=== PATIENT | male | born 1960 | race Caucasian/White ===

== ENCOUNTER 2018-08-03 05:12 | Inpatient (IN) | payer OTHER ==
[~2018-08-03] VITALS: Ht 182.9 cm; Wt 80.0 kg
[2018-08-03 07:09] LABS: ALKALINE PHOSPHATASE 53 U/L (46-116); ALT/SGPT 12 U/L (16-63); AST/SGOT 8 U/L (15-37); BILIRUBIN TOTAL 0.2 mg/dL (0.20-1.00); CALCIUM 8.1 mg/dL (8.5-10.1); CARBON DIOXIDE 22.7 mmol/L (21-32); CHLORIDE SERUM 96 mmol/L (98-107); CREATININE SERUM 2.3 mg/dL (0.7-1.3); GFR1 31 mL/min; GLUCOSE SERUM 143 mg/dL (74-106); POTASSIUM SERUM 4.1 mmol/L (3.5-5.1); SODIUM SERUM 131 mmol/L (136-145); TOTAL PROTEIN, SERUM 7.2 g/dL (6.4-8.2)
[2018-08-03 07:14] LABS: PLATELET COUNT 442 x10^3mcL (130-400)
[2018-08-03] MEDS ORDERED: KEN025C TOP (07:20)
[2018-08-03] MEDS ORDERED: HCT TOP (07:21)
[2018-08-03] MEDS ORDERED: SENNA8.8 MG/51 PO (07:22)
[2018-08-03] MEDS ORDERED: APAP500 MG PR (07:23)
[2018-08-03] MEDS ORDERED: HALOPERIDOL2 MG PO (07:25)
[2018-08-03] MEDS ORDERED: LEVSIN-SL0.125 MG SL (07:26)
[2018-08-03] MEDS ORDERED: LORAZEPAM0.5 MG PO (07:27)
[2018-08-03] MEDS ORDERED: MORPHINE SULFAT15 MG PO (07:28)
[2018-08-03 07:29] LABS: ALBUMIN 2.2 g/dL (3.4-5.0); CHOLESTEROL 93 mg/dL (<200); HDL CHOLESTEROL 33 mg/dL (40-60)
[2018-08-03] MEDS ORDERED: COMPAZINE10 M1 PO (07:29)
[2018-08-03] MEDS ORDERED: LAXATIVE5 M1 PR (07:30)
[2018-08-03] MEDS ORDERED: LACTULOSE10 GM/152 PO (07:31)
[2018-08-03] MEDS ORDERED: NOR5 PO (07:32)
[2018-08-03] MEDS ORDERED: LOPERAMIDE HCL2 MG PO (07:33)
[2018-08-03] MEDS ORDERED: GLYCOPYRROLATE1 M1 PO (07:34)
[2018-08-03 08:09] LABS: UA SPECIFIC GRAVITY 1.015 (1.005-1.035); microscopic required? YES; urine erythrocyte 3+ (NEGATIVE)
[2018-08-03 08:39] LABS: BAND NEUTROPHIL 8 % (0-10); SEGMENTED NEUTROPHILS 53 % (37-75)
[2018-08-03 08:40] LABS: MONOCYTE 9 % (0-7)
[2018-08-03 08:41] LABS: PLATELET MORPHOLOGY PLATELETS NORMAL; rbc morphology (normal/abnorm) ABNORMAL (NORMAL)
[2018-08-03 11:26] VITALS: BP 132/64
[2018-08-03 17:50] VITALS: BP 109/56
[2018-08-03 21:13] VITALS: BP 127/71
[2018-08-04 06:22] VITALS: BP 150/73
[2018-08-04 06:36] LABS: PLATELET COUNT 357 x10^3mcL (130-400)
[2018-08-04 07:31] LABS: RED CELL DISTRIBUTION WIDTH 18.2 % (11.5-14.5)
[2018-08-04 07:32] LABS: CALCIUM 7.3 mg/dL (8.5-10.1); CARBON DIOXIDE 20.6 mmol/L (21-32); MAGNESIUM 1.6 mg/dL (1.8-2.4); PHOSPHOROUS 3.8 mg/dL (2.5-4.9); POTASSIUM SERUM 3.6 mmol/L (3.5-5.1)
[2018-08-04 07:34] LABS: ALBUMIN 1.6 g/dL (3.4-5.0)
[2018-08-04 13:58] LABS: SEGMENTED NEUTROPHILS 44 % (37-75)
[2018-08-04 13:59] LABS: BAND NEUTROPHIL 7 % (0-10); BASOPHIL 1 % (0-2); MONOCYTE 10 % (0-7); rbc morphology (normal/abnorm) ABNORMAL (NORMAL)
[2018-08-04 14:05] LABS: PLATELET MORPHOLOGY PLATELETS INCREASED
[2018-08-04 18:50] VITALS: BP 86/57
[2018-08-04 21:17] VITALS: BP 125/75
[2018-08-05 05:30] VITALS: BP 155/55
[2018-08-05 09:27] VITALS: BP 129/73
[2018-08-05 17:00] VITALS: BP 117/70
[2018-08-05 21:22] VITALS: BP 126/65
[2018-08-06 06:11] VITALS: BP 141/76
[2018-08-06 06:44] LABS: CALCIUM 7.6 mg/dL (8.5-10.1); CARBON DIOXIDE 20.2 mmol/L (21-32); MAGNESIUM 1.6 mg/dL (1.8-2.4); POTASSIUM SERUM 3.2 mmol/L (3.5-5.1)
[2018-08-06 08:07] LABS: RED CELL DISTRIBUTION WIDTH 18.5 % (11.5-14.5)
[2018-08-06 09:55] VITALS: BP 160/72
[2018-08-06 12:02] LABS: PLATELET COUNT 427 x10^3mcL (130-400)
[2018-08-06 12:05] LABS: ATYPICAL LYMPH 1 %; BAND NEUTROPHIL 2 % (0-10); BASOPHIL 0 % (0-2); MONOCYTE 9 % (0-7); SEGMENTED NEUTROPHILS 64 % (37-75)
[2018-08-06 12:07] LABS: PLATELET MORPHOLOGY PLATELETS INCREASED; ovalocyte/elliptocyte 1+; rbc morphology (normal/abnorm) ABNORMAL (NORMAL); schistocyte (helmet cell) 1+
[2018-08-06 16:41] VITALS: BP 136/73
[2018-08-06 21:05] VITALS: BP 148/75
[2018-08-07 05:19] VITALS: BP 122/70
[2018-08-07 07:47] VITALS: Ht 182.9 cm; Wt 80.0 kg
[2018-08-07 09:25] VITALS: BP 134/82
[2018-08-07 12:27] LABS: CALCIUM 8.1 mg/dL (8.5-10.1); CARBON DIOXIDE 20.7 mmol/L (21-32); POTASSIUM SERUM 3.8 mmol/L (3.5-5.1)
[2018-08-07 12:33] LABS: BASOPHIL % 0.3 % (0-2); PLATELET COUNT 400 x10^3mcL (130-400); RED CELL DISTRIBUTION WIDTH 19.5 % (11.5-14.5)
[2018-08-07 16:33] VITALS: BP 166/80
[2018-08-07 19:20] VITALS: BP 133/77
[2018-08-07 20:42] VITALS: BP 139/89
[2018-08-08 05:48] VITALS: BP 98/74
[2018-08-08 06:38] LABS: CARBON DIOXIDE 18.7 mmol/L (21-32); CREATININE SERUM 1.6 mg/dL (0.7-1.3); POTASSIUM SERUM 3.5 mmol/L (3.5-5.1)
[2018-08-08 06:52] LABS: IRON 27 ug/dL (65-170); TOTAL IRON BINDING CAPACITY 123 ug/dL (250-450)
[2018-08-08 07:49] LABS: BASOPHIL % 0.2 % (0-2); PLATELET COUNT 354 x10^3mcL (130-400)
[2018-08-08 07:53] LABS: RED CELL DISTRIBUTION WIDTH 18.9 % (11.5-14.5)
[2018-08-08 08:42] VITALS: BP 174/86
[2018-08-08 10:20] VITALS: BP 124/84
[2018-08-08 16:13] VITALS: BP 118/68
[2018-08-08 20:35] VITALS: BP 97/71
[2018-08-09 06:05] VITALS: BP 164/85
[2018-08-09 09:17] VITALS: BP 180/86
[2018-08-09 12:16] LABS: BASOPHIL % 0.4 % (0-2); PLATELET COUNT 351 x10^3mcL (130-400)
[2018-08-09 12:18] LABS: rbc morphology (normal/abnorm) ABNORMAL (NORMAL)
[2018-08-09 12:42] LABS: POTASSIUM SERUM 4.2 mmol/L (3.5-5.1)
[2018-08-09 12:43] LABS: CALCIUM 7.5 mg/dL (8.5-10.1); CREATININE SERUM 1.6 mg/dL (0.7-1.3)
[2018-08-09 19:10] VITALS: BP 178/96
[2018-08-09 21:16] VITALS: BP 102/67
[2018-08-10 05:53] VITALS: BP 126/71
[2018-08-10 06:57] LABS: BASOPHIL % 0.4 % (0-2); PLATELET COUNT 341 x10^3mcL (130-400)
[2018-08-10 07:07] LABS: RED CELL DISTRIBUTION WIDTH 18.5 % (11.5-14.5)
[2018-08-10 07:16] LABS: CALCIUM 8.2 mg/dL (8.5-10.1); CARBON DIOXIDE 20.6 mmol/L (21-32); CREATININE SERUM 1.5 mg/dL (0.7-1.3); POTASSIUM SERUM 3.4 mmol/L (3.5-5.1)
[2018-08-10 09:14] VITALS: BP 177/85
[2018-08-10 18:17] VITALS: BP 157/68
[2018-08-10 21:47] VITALS: BP 162/81
[2018-08-10 22:45] VITALS: BP 118/75
[2018-08-11 05:06] VITALS: BP 130/78; BP 131/81
[2018-08-11 07:15] LABS: CARBON DIOXIDE 23.7 mmol/L (21-32); CREATININE SERUM 1.4 mg/dL (0.7-1.3); POTASSIUM SERUM 4.2 mmol/L (3.5-5.1)
[2018-08-11 08:35] LABS: BASOPHIL % 0.3 % (0-2); PLATELET COUNT 408 x10^3mcL (130-400); RED CELL DISTRIBUTION WIDTH 19.6 % (11.5-14.5)
[2018-08-11 09:48] VITALS: BP 168/82
[2018-08-11 17:50] VITALS: BP 150/79
[2018-08-11 20:49] VITALS: BP 140/79
[2018-08-12 05:24] VITALS: BP 166/95
[2018-08-12 06:19] LABS: BASOPHIL % 0.6 % (0-2); PLATELET COUNT 395 x10^3mcL (130-400)
[2018-08-12 06:35] LABS: CALCIUM 7.9 mg/dL (8.5-10.1); CARBON DIOXIDE 22.3 mmol/L (21-32); CHLORIDE SERUM 107 mmol/L (98-107); CREATININE SERUM 1.3 mg/dL (0.7-1.3); GFR1 > 60 mL/min; GLUCOSE SERUM 102 mg/dL (74-106); SODIUM SERUM 138 mmol/L (136-145)
[2018-08-12 06:54] LABS: RED CELL DISTRIBUTION WIDTH 19.2 % (11.5-14.5)
[2018-08-12 08:10] VITALS: BP 178/93
[2018-08-12 11:04] VITALS: BP 144/68
[2018-08-12 19:30] VITALS: BP 130/58
[2018-08-12 22:03] VITALS: BP 138/65
[2018-08-13 05:55] VITALS: BP 125/62
[2018-08-13 07:23] LABS: BASOPHIL % 0.8 % (0-2); PLATELET COUNT 359 x10^3mcL (130-400)
[2018-08-13 07:37] LABS: RED CELL DISTRIBUTION WIDTH 19.7 % (11.5-14.5)
[2018-08-13 07:47] LABS: CALCIUM 7.9 mg/dL (8.5-10.1); CARBON DIOXIDE 22.9 mmol/L (21-32); CHLORIDE SERUM 110 mmol/L (98-107); CREATININE SERUM 1.3 mg/dL (0.7-1.3); GFR1 > 60 mL/min; GLUCOSE SERUM 109 mg/dL (74-106); SODIUM SERUM 141 mmol/L (136-145)
[2018-08-13 09:55] VITALS: BP 117/68
[2018-08-13 17:01] VITALS: BP 124/61
[2018-08-13 21:06] VITALS: BP 108/61
[2018-08-14 06:24] VITALS: BP 147/63
[2018-08-14 07:17] LABS: CALCIUM 8.4 mg/dL (8.5-10.1); CARBON DIOXIDE 21.9 mmol/L (21-32); CHLORIDE SERUM 108 mmol/L (98-107); CREATININE SERUM 1.2 mg/dL (0.7-1.3); GFR1 > 60 mL/min; GLUCOSE SERUM 126 mg/dL (74-106); POTASSIUM SERUM 3.8 mmol/L (3.5-5.1); SODIUM SERUM 139 mmol/L (136-145)
[2018-08-14 07:47] LABS: BASOPHIL % 0.7 % (0-2)
[2018-08-14 08:01] LABS: PLATELET COUNT 457 x10^3mcL (130-400); RED CELL DISTRIBUTION WIDTH 20.7 % (11.5-14.5)
[2018-08-14 09:37] VITALS: BP 132/60
[2018-08-14 18:00] VITALS: BP 199/79
[2018-08-15 06:05] VITALS: BP 123/78
[2018-08-15 09:22] VITALS: BP 170/89
[2018-08-15] MEDS ORDERED: VANCO 750750 MG/250 IV (11:41)
[2018-08-15 17:04] VITALS: BP 152/73
[2018-08-15 21:20] VITALS: BP 168/55
[2018-08-15 23:40] VITALS: BP 180/81
[2018-08-16 01:00] VITALS: BP 125/62
[2018-08-16 06:05] VITALS: BP 148/74
[2018-08-16 09:17] VITALS: BP 101/56
[2018-08-16 12:29] VITALS: BP 116/60
[2018-08-16 16:08] VITALS: BP 117/78
[2018-08-16 19:30] VITALS: BP 100/82
[2018-08-17 05:32] VITALS: BP 137/71
[2018-08-17 07:07] LABS: BASOPHIL % 0.8 % (0-2); PLATELET COUNT 371 x10^3mcL (130-400)
[2018-08-17 07:10] LABS: CARBON DIOXIDE 25.9 mmol/L (21-32); CHLORIDE SERUM 105 mmol/L (98-107); CREATININE SERUM 0.9 mg/dL (0.7-1.3); GFR1 > 60 mL/min; GLUCOSE SERUM 95 mg/dL (74-106); MAGNESIUM 1.5 mg/dL (1.8-2.4); POTASSIUM SERUM 4.3 mmol/L (3.5-5.1); SODIUM SERUM 137 mmol/L (136-145)
[2018-08-17 08:20] VITALS: BP 139/78
[2018-08-17 08:57] LABS: RED CELL DISTRIBUTION WIDTH 21.9 % (11.5-14.5)
[2018-08-17 16:18] VITALS: BP 117/75
[2018-08-17 21:58] VITALS: BP 173/59
[2018-08-18 05:52] VITALS: BP 135/98
[2018-08-18 06:09] LABS: CALCIUM 8.2 mg/dL (8.5-10.1); CARBON DIOXIDE 30.5 mmol/L (21-32); CHLORIDE SERUM 103 mmol/L (98-107); CREATININE SERUM 0.9 mg/dL (0.7-1.3); GFR1 > 60 mL/min; GLUCOSE SERUM 86 mg/dL (74-106); MAGNESIUM 1.8 mg/dL (1.8-2.4); POTASSIUM SERUM 4.6 mmol/L (3.5-5.1); SODIUM SERUM 136 mmol/L (136-145)
[2018-08-18 06:52] LABS: BASOPHIL % 0.2 % (0-2); PLATELET COUNT 387 x10^3mcL (130-400)
[2018-08-18 08:19] VITALS: BP 178/70
[2018-08-18 09:11] LABS: RED CELL DISTRIBUTION WIDTH 22.9 % (11.5-14.5)
[2018-08-18 20:47] VITALS: BP 103/66
[2018-08-19 05:25] VITALS: BP 174/71
[2018-08-19 07:23] LABS: PLATELET COUNT 367 x10^3mcL (130-400)
[2018-08-19 07:25] LABS: RED CELL DISTRIBUTION WIDTH 24.7 % (11.5-14.5)
[2018-08-19 07:28] LABS: CALCIUM 8.2 mg/dL (8.5-10.1); CARBON DIOXIDE 28.3 mmol/L (21-32); CHLORIDE SERUM 103 mmol/L (98-107); CREATININE SERUM 0.9 mg/dL (0.7-1.3); GFR1 > 60 mL/min; GLUCOSE SERUM 86 mg/dL (74-106); MAGNESIUM 1.8 mg/dL (1.8-2.4); POTASSIUM SERUM 4.4 mmol/L (3.5-5.1); SODIUM SERUM 135 mmol/L (136-145)
[2018-08-19 09:34] VITALS: BP 125/77
[2018-08-19 10:40] LABS: BAND NEUTROPHIL 3 % (0-10); BASOPHIL 0 % (0-2); MONOCYTE 8 % (0-7); SEGMENTED NEUTROPHILS 60 % (37-75)
[2018-08-19 10:44] LABS: PLATELET MORPHOLOGY LARGE PLATELET SEEN; rbc morphology (normal/abnorm) ABNORMAL (NORMAL); tear drop cell (dacryocyte) 1+
[2018-08-19 17:10] VITALS: BP 155/73
[2018-08-19 20:59] VITALS: BP 139/78
[2018-08-20 06:16] VITALS: BP 155/62
[2018-08-20 10:09] VITALS: BP 162/63
[2018-08-20 17:14] VITALS: BP 128/69
[2018-08-20] MEDS ORDERED: BACTRIM DS1 TAB PO (17:32)
== END 2018-08-20 20:35 | DRG 871 ==
LOC: ED 05:12 → IC 09:19 → MU 09:19 → IC 08-12 15:43 → MU 08-12 20:35
PROVIDERS: Emergency Medicine; Family Medicine; Internal Medicine; Surgery; ADMIT Internal Medicine
PROC: 0DCQ7ZZ Extirpation of Matter from Anus, Via Natural or Artificial Opening (ICD-10-PCS; principal; 2018-08-12 13:45)
DX: A41.9 Sepsis, unspecified organism (principal); L89.154 Pressure ulcer of sacral region, stage 4; N17.0 Acute kidney failure with tubular necrosis; E43 Unspecified severe protein-calorie malnutrition; G82.20 Paraplegia, unspecified; E87.1 Hypo-osmolality and hyponatremia; N13.6 Pyonephrosis; Z68.1 Body mass index [BMI] 19.9 or less, adult; K58.1 Irritable bowel syndrome with constipation; B86 Scabies; E86.0 Dehydration; I48.91 Unspecified atrial fibrillation; D47.3 Essential (hemorrhagic) thrombocythemia; B96.20 Unspecified Escherichia coli [E. coli] as the cause of diseases classified elsewhere; B96.4 Proteus (mirabilis) (morganii) as the cause of diseases classified elsewhere; B95.62 Methicillin resistant Staphylococcus aureus infection as the cause of diseases classified elsewhere; E87.6 Hypokalemia; E83.42 Hypomagnesemia; Z98.1 Arthrodesis status; N18.3 Chronic kidney disease, stage 3 (moderate); D64.9 Anemia, unspecified; I12.9 Hypertensive chronic kidney disease with stage 1 through stage 4 chronic kidney disease, or unspecified chronic kidney disease; Z91.14 Patient's other noncompliance with medication regimen
CPT/HCPCS: 82962; C9113; J0360; J0696; J1644; J2001; J2543; J2704; J2710; J3370; J3475; J7030; J7040; J7042; J7050; J7131; Q0092; Q9967